=== PATIENT | male | born 1970 | race Native Hawaiian/Other Pacific Islander ===

== ENCOUNTER 2017-06-08 22:16 | Inpatient (IN) | payer OTHER ==
[~2017-06-08] VITALS: Ht 190.5 cm; Wt 149.3 kg
[~2017-06-08 22:16] MED LIST: ASA LO-DOSE81 MG PO; ATEN25TA21 PO; CETIRIZINE10 MG PO; CYCL10TA35 PO; DIAZ5TAB20 PO; GLIP10TA55 PO; HYDR10TA51 PO; IBUPROFEN PO; LISI10TA11 PO; METF500T PO; NEXIUM40 M1 PO; PRAVACHOL20 MG PO; QUET100T2 PO; RANITIDINE 150150 MG PO; ZOLOFT25 MG PO
[2017-06-08 23:15] LABS: PLATELET COUNT 259 K/uL (142-355)
[2017-06-08 23:24] LABS: POTASSIUM 3.6 mmol/L (3.6-5.2); SODIUM 132 mmol/L (136-145)
[2017-06-09 00:55] VITALS: BP 135/95; TEMP 98.2; Ht 190.5 cm; Wt 149.3 kg
[2017-06-09 04:00] VITALS: BP 125/70; TEMP 98.2
[2017-06-09 08:00] VITALS: BP 125/78; TEMP 98.47
[2017-06-09 12:00] VITALS: TEMP 97.6
[2017-06-09 14:04] LABS: PLATELET COUNT 258 K/uL (142-355)
[2017-06-09 16:00] VITALS: BP 141/82; TEMP 97.6
[2017-06-09 20:00] VITALS: BP 148/91; TEMP 98.1
[2017-06-10] VITALS: BP 139/69; TEMP 97.8
[2017-06-10 04:00] VITALS: BP 138/89; TEMP 97.8
[2017-06-10 07:50] VITALS: BP 126/76; TEMP 98.2
== END 2017-06-10 11:10 | disposition home or self-care (01) | DRG 581 ==
LOC: MED/SURG 22:16
PROVIDERS: ADMIT Family Medicine
PROC: 0J950ZZ Drainage of Left Neck Subcutaneous Tissue and Fascia, Open Approach (ICD-10-PCS; principal; 2017-06-09)
DX: L02.11 Cutaneous abscess of neck (principal); E11.21 Type 2 diabetes mellitus with diabetic nephropathy; Z79.4 Long term (current) use of insulin; G47.39 Other sleep apnea; I10 Essential (primary) hypertension; G89.4 Chronic pain syndrome
CPT/HCPCS: 36415; 80053; 82947; 82948; 85027; 87040; 96365; 96366; 96367; 96372; 96375; J1815; J2175; J2930

== ENCOUNTER 2022-07-30 08:11 | Outpatient (CLI) | payer OTHER | END 2022-07-30 19:48 | disposition home or self-care (01) | LOC: LABW 08:11 → US 08:11 → RESP 09:00 → LABW 19:48 | PROVIDERS: ATTEND Nurse Practitioner Family | DX: R80.8 Other proteinuria (principal); I10 Essential (primary) hypertension | CPT/HCPCS: 84156 ==

== ENCOUNTER 2022-08-06 08:05 | Outpatient (CLI) | payer OTHER ==
[~2022-08-06] VITALS: Ht 190.5 cm; Wt 94.3 kg
== END 2022-08-06 18:55 | disposition home or self-care (01) ==
LOC: NM 08:05
PROVIDERS: ATTEND Nurse Practitioner Family
DX: I10 Essential (primary) hypertension (principal); Z79.899 Other long term (current) drug therapy
CPT/HCPCS: A9500; J2785

== ENCOUNTER 2022-08-27 10:14 | Outpatient (CLI) | payer OTHER ==
[2022-08-27 11:20] LABS: POTASSIUM 4.3 mmol/L (3.6-5.2)
== END 2022-08-27 21:30 | disposition home or self-care (01) ==
LOC: LABW 10:14
PROVIDERS: ATTEND Student in an Organized Health Care Education/Training Program
DX: N28.89 Other specified disorders of kidney and ureter (principal); D63.1 Anemia in chronic kidney disease; E79.0 Hyperuricemia without signs of inflammatory arthritis and tophaceous disease; R80.8 Other proteinuria; D50.8 Other iron deficiency anemias; E78.2 Mixed hyperlipidemia; R94.6 Abnormal results of thyroid function studies; E55.9 Vitamin D deficiency, unspecified; Z79.899 Other long term (current) drug therapy; N18.9 Chronic kidney disease, unspecified; I12.9 Hypertensive chronic kidney disease with stage 1 through stage 4 chronic kidney disease, or unspecified chronic kidney disease
CPT/HCPCS: 36415; 80053; 81002; 82306; 82570; 83970; 84156; 86037; 86160; 86592; 87535; G0432